=== PATIENT | male | born 1995 | race Caucasian/White ===

== ENCOUNTER 2021-02-22 14:12 | Emergency (ER) | payer OTHER ==
[~2021-02-22] VITALS: Ht 177.8 cm; Wt 79.4 kg
[2021-02-22 14:34] VITALS: BP 127/75
[2021-02-22] MEDS ORDERED: ACET-8386 PO (15:23)
[2021-02-22] MEDS ORDERED: IBUP-2213 PO (15:23)
--- NOTE | 2021-02-22 16:08 | NUR ---
PATIENTS 5TH METACARPAL ON HIS LEFT FOOT WAS SPLINTED. PATIENT WAS THEN GIVEN CRUTCHES. PATIENT WAS GIVEN INSTRUCTIONS ON HOW TO USE THE CRUTCHES AND RETURNED SAFE USE OF IT.
--- NOTE | 2021-02-22 16:12 | NUR ---
NO NURSING INTERVENTIONS PROVIDED.
--- NOTE | 2021-02-22 16:14 | NUR ---
Patient discharged with v/s stable. Written and verbal after care instructions ABOUT MEDICATIONS AND TOE FRACTURE given and explained. Patient alert, oriented and verbalized understanding of instructions. Ambulatory with steady gait WITH CRUTCHES. All questions addressed prior to discharge. ID band removed. Patient advised to follow up with PMD. Rx of NORCO 5-325MG AND IBUPROFEN given. Patient educated on indication of medication including possible reaction and side effects. Opportunity to ask questions provided and answered.
== END 2021-02-22 16:14 | disposition home or self-care (01) ==
LOC: MED 14:12
DX: S92.515A Nondisplaced fracture of proximal phalanx of left lesser toe(s), initial encounter for closed fracture (principal); Z79.899 Other long term (current) drug therapy; W19.XXXA Unspecified fall, initial encounter; Y93.89 Activity, other specified; Y92.89 Other specified places as the place of occurrence of the external cause; Y99.8 Other external cause status
CPT/HCPCS: 29515; 73630; 99283